=== PATIENT | male | born 1935 | race Caucasian/White ===

== ENCOUNTER 2017-01-10 09:48 | Emergency (ER) | payer OTHER ==
--- NOTE | 2017-01-10 11:00 | RAD ---
INDICATION: Ulnar side wrist pain x3 days without known traumatic injury COMPARISON: None. TECHNIQUE: 3 views right wrist. REPORT: There is approximately 4 mm of distal ulnar variance with the ulna protruding distally relative to the radius. Otherwise the visualized bones are appropriately aligned. Degenerative changes include narrowing of the radiocarpal joint and sclerotic change of the distal radius. There is narrowing and mild sclerotic change of the right thumb metacarpal trapezium joint. No acute fracture or dislocation is identified. IMPRESSION: Degenerative changes including distal ulnar variance as described above. If the patient's symptoms persist, follow-up imaging is recommended.
--- NOTE | 2017-01-10 11:55 | UC ---
Hand/Wrist HPI - HPI Summary HPI Summary: THREE DAYS OF RIGHT WRIST PAIN (ULNAR ASPECT). NO KNOWN INJURY. PAIN WORSE WITH TOUCH TO (ULNAR ASPECT OF) WRIST, ALSO WITH FLEXION OF WRIST. WRIST STIFFNESS WORSE IN MORNING GETS BETTER THROUGHOUT DAY, BUT PAIN WITH FLEXION AND TOUCH ARE CONSTANT. - History Of Current Complaint Chief Complaint: UCUpperExtremity Stated Complaint: WRIST INJURY Time Seen by Provider: 01/10/17 10:02 Hx Obtained From: Patient, Family/Jack Prizer Onset/Duration: Sudden Onset, Lasting Days, Still Present Severity Initially: Moderate Severity Currently: Moderate Pain Intensity: 2 Pain Scale Used: 0-10 Numeric Character Of Pain: Dull Aggravating Factor(s): Movement, Flexion, Internal/External Rotation Alleviating: Nothing Associated Signs And Symptoms: Positive: Negative Related History: Dominant Hand Right - Allergies/Home Medications Allergies/Adverse Reactions: Allergies Allergy/AdvReac Type Severity Reaction Status Date / Time No Known Allergies Allergy Verified 08/27/16 11:55 Home Medications: Home Medications Tadalafil [Cialis] 01/10/17 [History] PMH/Surg Hx/FS Hx/Imm Hx Previously Healthy: Yes Endocrine History Of: Denies: Diabetes, Thyroid Disease Cardiovascular History Of: Denies: Cardiac Disorders, Hypertension, Pacemaker/ICD Respiratory History Of: Denies: COPD, Asthma GI/ History Of: Denies: Ulcer, Renal Disease - Surgical History Surgical History: Yes Surgery Procedure, Year, and Place: RIGHT KNEE MENISCUS REPAIR. LEFT FOOT BONE SPUR TAKEN OFF. Deviated septum repair - Family History Known Family History: Negative: Other - JOINT LAXITY - Social History Occupation: Retired Lives: With Family Alcohol Use: Daily Substance Use Type: None Smoking Status (MU): Former Smoker Have You Smoked in the Last Year: No When Did the Patient Quit Smoking/Using Tobacco: 1986 - Immunization History Most Recent Tetanus Shot: more than 10 years Review of Systems Constitutional: Negative Skin: Negative Eyes: Negative ENT: Negative Respiratory: Negative Cardiovascular: Negative Gastrointestinal: Negative Genitourinary: Negative Motor: Negative Neurovascular: Negative Musculoskeletal: Arthralgia, Myalgia Neurological: Negative Psychological: Negative All Other Systems Reviewed And Are Negative: Yes Physical Exam Triage Information Reviewed: Yes Appearance: Well-Appearing, No Pain Distress, Well-Nourished Vital Signs: Initial Vital Signs Temp 97.6 F 01/10/17 10:00 Resp 16 02/12/17 10:00 Vital Signs Reviewed: Yes Eye Exam: Normal ENT Exam: Normal ENT: Positive: Normal ENT inspection, Hearing grossly normal, TMs normal Dental Exam: Normal Neck exam: Normal Respiratory Exam: Normal Respiratory: Positive: Chest non-tender, Lungs clear, Normal breath sounds, No respiratory distress, No accessory muscle use Cardiovascular Exam: Normal Cardiovascular: Positive: RRR, No Murmur, Pulses Normal, Brisk Capillary Refill Abdominal Exam: Normal Musculoskeletal: Positive: Strength Intact, ROM Intact, No Edema, Other: - PAIN WITH FLEXION TO ULNAR ASPECT OF RIGHT WRIST Neurological Exam: Normal Psychological Exam: Normal Psychological: Positive: Normal Response To Family Skin Exam: Normal Hand/Wrist Course/Dx - Differential Dx/Diagnosis Differential Diagnosis/HQI/PQRI: Fracture, Sprain, Strain Provider Diagnoses: RIGHT WRIST OSTEOARTHRITIS. RIGHT 4mm DISTAL ULNAR VARIANCE. RIGHT WRIST SPRAIN Discharge - Discharge Plan Condition: Stable Disposition: HOME Patient Education Materials: Osteoarthritis (ED), Wrist Sprain (ED) Referrals: Gian Agarwal MD [Primary Care Provider] - Edgardo Palacio MD [Medical Doctor] -
== END 2017-01-10 11:37 | disposition home or self-care (01) ==
LOC: UCEAST 09:48
DX: M19.031 Primary osteoarthritis, right wrist (principal); S63.501A Unspecified sprain of right wrist, initial encounter; X58.XXXA Exposure to other specified factors, initial encounter; Y93.9 Activity, unspecified; Y92.9 Unspecified place or not applicable; Z87.891 Personal history of nicotine dependence
CPT/HCPCS: 99213; G0463